=== PATIENT | male | born 1985 | race Caucasian/White ===

== ENCOUNTER 2017-03-06 04:59 | Emergency (ER) | payer OTHER ==
[~2017-03-06] VITALS: Ht 180.3 cm; Wt 90.3 kg
[~2017-03-06 04:59] MED LIST: OXYC1TAB3 PO
[2017-03-06 05:06] VITALS: BP 125/84; PULSE 132; TEMP 37; O2SAT 99; Ht 180.3 cm; Wt 90.3 kg
[2017-03-06] MEDS ORDERED: METH10TA2 PO (05:21)
[2017-03-06] MEDS ORDERED: LORAZEPAM 1 MG TAB SL STA (05:32)
[2017-03-06] MEDS ORDERED: ATV/1 PO (05:34)
[2017-03-06] MEDS ORDERED: ATIVAN 1MG HOMEPACK PO ONE (05:45)
--- NOTE | 2017-03-06 05:48 | EMERGENCY ROOM VISIT NOTE ---
History Report prepared by Chuyita: Ave Larry Under the Supervision of: Dr. Vinny Mendez M.D. First contact with patient: 05:12 Chief Complaint: ANXIETY Stated Complaint: EXTREME PANIC DISORDER/ATTACK History of Present Illness The patient is a 31 year old male who presents to the Emergency Room with complaints of an episode of severe anxiety starting 2 and half hours ago. The patient states that he has had anxiety attacks in the past since he was 17 and that his attacks have no pattern. He states in the past he has had them in clusters and is currently worried that another one will occur. The patient reports that this is the worst episode he has ever had in his life. He states he got up and let the dog out when it started. He reports that it feels like he is having a heart attack and being choked at the same time. He states that shortly after he starts to experience back pain when it feels like his adrenaline kicks in. The patient states that he was shaking and couldn't get off the bathroom floor. He states that he urinated in his pants from the episode and this is the first time that that has ever happened. The patient states that currently he feels twitchy and awful. He reports that this may have come about because he just lost his grandmother. The patient denies being suicidal and homicidal. Source of History: patient Onset: 2 and half hours ago Position: other (global) Symptom Intensity: severe Quality: other (global) Timing: other (episode) Associated Symptoms: + chest pain, + SOB, + back pain Note: The patient complains of feeling twitchy. The patient denies any suicidal or homicidal ideations. Review of Systems See HPI for pertinent positives & negatives. A total of 10 systems reviewed and were otherwise negative. Past Medical & Surgical Surgical Problems: (1) History of amputation of finger Family History Cancer Heart disease Social History Smoking Status: Current Every Day Smoker Alcohol Use: occasionally Marital Status: single Housing Status: lives with family Occupation Status: unemployed Current/Historical Medications Scheduled Methadone Hcl (Dolophine), 40 MG PO DAILY Scheduled PRN Lorazepam (Ativan), 1 MG PO Q6H PRN for Anxiety/Agitation Allergies Coded Allergies: No Known Allergies (Verified , 03/06/17) Physical Exam Vital Signs Date Time Temp Pulse Resp B/P (MAP) Pulse Ox O2 Delivery O2 Flow Rate FiO2 7/10/17 05:06 37.0 132 20 125/84 99 Room Air Physical Exam GENERAL: Patient is a healthy-appearing well-nourished HEAD: Normocephalic atraumatic EYES: Ocular movements intact pupils equal and react to light OROPHARYNX mucous membranes are moist no exudates present no erythema or edema present NECK: Supple no nuchal rigidity CHEST: Good equal expansion LUNGS: Clear and equal to auscultation CARDIAC: Normal S1 and S2 ABDOMEN: Soft nontender no guarding BACK: No CVA tenderness EXTREMITIES: No pain upon palpation normal muscle strength in all groups no clubbing cyanosis or edema NEURO: Patient is following commands and answering questions appropriately. Alert and oriented x3 Cranial Nerves 2-12 grossly intact. PSYCH: Patient denies suicidal and homicidal ideations. Medical Decision & Procedures Medications Administered Medications (Trade) Dose Ordered Sig/Daniella Route Start Time Stop Time Status Last Admin Dose Admin Lorazepam (Ativan Tab) 1 mg NOW STAT SL 03/06/17 05:32 03/06/17 05:33 DC 03/06/17 05:40 1 MG Lorazepam (Ativan 1MG Home Pack) 1 homepack UD ONCE PO 03/06/17 05:45 03/06/17 05:46 DC 03/06/17 05:40 1 HOMEPACK ED Course 0524: Past medical records reviewed. The patient was evaluated in room A4. A complete history and physical examination was performed. I discussed results and treatment plan with the patient. He verbalizes agreement and understanding. The patient is ready for discharge. 0532: Ordered Ativan Tab 1 mg SL. 0545: Ordered Ativan 1MG Home Pack 1 homepack PO. Medical Decision Medication Reconciliation: I attest that I have personally reviewed the patient' s current medication list Blood Pressure Screening: Patient was found to have normal blood pressure on screening and does not require follow up. Differential diagnosis: Etiologies such as mood disorder, infection, hypoglycemia, electrolyte abnormalities, cardiac sources, intracerebral event, toxicologic, neurologic, as well as others were entertained. This is a 31-year-old male that presents emergency department complaining of severe anxiety. The patient is requesting medicine to get him through his grandmother's on Monday. I feel that this is reasonable so he was given 1 mg of Ativan in the emergency department area I stressed the need for follow-up with case management to make sure that the patient is getting the appropriate therapy. Case management did meet independently with the patient. The patient denies being suicidal or homicidal and I feel he can be safely discharged home. Patient and family were in agreement with the treatment plan. Impression Primary Impression: Acute anxiety Scribe Attestation The scribe's documentation has been prepared under my direction and personally reviewed by me in its entirety. I confirm that the note above accurately reflects all work, treatment, procedures, and medical decision making performed by me. Departure Information Dispostion Home / Self-Care Prescriptions Lorazepam (ATIVAN) 1 Mg Tab 1 MG PO Q6H Y for Anxiety/Agitation, #6 TAB Prov: Vinny Mendze MD 03/06/17 Referrals No Doctor, Assigned (PCP) Forms HOME CARE DOCUMENTATION FORM, IMPORTANT VISIT INFORMATION Patient Instructions My [facility] Additional Instructions Need Follow up with O/P services You received narcotic or benzodiazepene medication while in the emergency room today. Do not drive, operate heavy machinery, mix medications, or drink alcohol under the influence of this medication. Radiographs and CTs will be reread by a radiologist in the morning. Culture results are usually available in approx 48 hours You have been examined and treated today on an emergency basis only. This is not a substitute for, or an effort to provide, complete comprehensive medical care. It is impossible to recognize and treat all injuries or illnesses in a single emergency department visit. It is therefore important that you follow up closely with your PCP. Call as soon as possible for an appointment. Thank you for your time and consideration. I look forward to speaking with you again soon. Please don't hesitate to call us if you have any questions.
== END 2017-03-06 05:50 | disposition home or self-care (01) ==
LOC: C.EDB 05:01 → C.EDA 05:50
DX: F41.9 Anxiety disorder, unspecified (principal); F17.210 Nicotine dependence, cigarettes, uncomplicated; Z80.9 Family history of malignant neoplasm, unspecified; Z82.49 Family history of ischemic heart disease and other diseases of the circulatory system; Z79.899 Other long term (current) drug therapy

== ENCOUNTER 2017-03-17 10:27 | Emergency (ER) | payer OTHER ==
[~2017-03-17] VITALS: Ht 180.3 cm; Wt 90.6 kg
[~2017-03-17 10:27] MED LIST changes: +ATV/1 PO; +METH10TA2 PO; -OXYC1TAB3 PO
[2017-03-17 10:32] VITALS: TEMP 36.7; Ht 180.3 cm; Wt 90.6 kg
[2017-03-17] MEDS ORDERED: LORAZEPAM 2 MG/ML 1 ML VIAL IV STA (10:53)
[2017-03-17 11:22] LABS: URINE APPEARANCE CLEAR (CLEAR); URINE BILIRUBIN NEG (NEG); URINE COLOR YELLOW; URINE NITRITE NEG (NEG); URINE PH 5.5 (4.5-7.5); URINE SPECIFIC GRAVITY 1.022 (1.000-1.030); UROBILINOGEN NEG (NEG)
[2017-03-17 11:24] LABS: MANUAL MICROSCOPIC REQUIRED? NO; REVIEW REQ? NO
--- NOTE | 2017-03-17 11:39 | DIAGNOSTIC IMAGING REPORT ---
CHEST ONE VIEW PORTABLE HISTORY: 31 years-old Male Mood Disorder COMPARISON: Chest radiograph 04/06/2009 TECHNIQUE: Portable upright AP view of the chest FINDINGS: Cardiomediastinal and hilar silhouettes are within normal limits. No pneumothorax, pleural effusion, focal airspace consolidation or overt pulmonary edema. There is minimal subsegmental atelectasis of the left lung base. Bones are grossly intact. There is a remote healed mid left clavicular fracture noted. IMPRESSION: Subsegmental left basilar atelectasis without acute cardiopulmonary process. The above report was generated using voice recognition software. It may contain grammatical, syntax or spelling errors. Electronically signed by: Aidan Cedeno M.D. 03/17/2017 11:38 AM Dictated Date/Time: 03/17/2017 11:37 AM
[2017-03-17 11:42] LABS: BASO % 0.2 %; BASO ABS # 0.02 K/uL (0-0.2); COMPLETE YES; HEMATOCRIT 47.6 % (42-52); IG% 0.4 %; LYMPH % 32.7 %; LYMPH ABS # 2.95 K/uL (1.2-3.4); MEAN CORPUSCULAR HEMOGLOBIN 29.8 pg (25-34); MEAN CORPUSCULAR HGB CONC 35.1 g/dl (32-36); MEAN PLATELET VOLUME 10.5 fL (7.4-10.4); MONO % 4.2 %; NEUT % 61.5 %; PLATELET COUNT 300 K/uL (130-400); WHITE BLOOD COUNT 9.02 K/uL (4.8-10.8)
[2017-03-17 11:49] LABS: BENZODIAZEPINE, URINE NEG (NEG); COCAINE,URINE NEG (NEG); PHENCYCLIDINE, URINE NEG (NEG)
[2017-03-17 12:04] LABS: BUN/CREATININE RATIO 12.6 (10-20); CALCIUM 9.9 mg/dl (8.5-10.1); CREATININE 1.1 mg/dl (0.60-1.40); POTASSIUM 3.7 mmol/L (3.5-5.1)
[2017-03-17 12:15] LABS: THYROID STIMULATING HORMONE 0.683 uIu/ml (0.300-4.500)
[2017-03-17] MEDS ORDERED: LORA-741 PO (13:41)
[2017-03-17 13:46] VITALS: BP 134/87; PULSE 98; O2SAT 96
--- NOTE | 2017-03-17 17:44 | EMERGENCY ROOM VISIT NOTE ---
History Report prepared by Chuyita: Shana Warner Under the Supervision of: Dr. Alan Smith D.O. First contact with patient: 10:35 Chief Complaint: ANXIETY Stated Complaint: PANIC DISORDER History of Present Illness The patient is a 31 year old male who presents to the Emergency Room with complaints of intermittent anxiety attacks for the past week. The patient was diagnosed with anxiety when he was 17 years old. He states that he will be fine for a while, but then every couple of years he has worsening panic attacks. The patient states that he has been having severe panic attacks more than once a day for the past week. He estimates that he has had 10 major episodes. His typical panic attack starts with numbness and tingling in the left arm and racing heart. He also reports fear and paranoia and back pain radiating up into his neck that he describes as "electric shock pain." The patient's anxiety has been getting worse, and he states that recently he has been incontinent of urine with his most severe panic attacks. He denies anything triggering his symptoms and has not been under more stress than usual lately. The patient's current anxiety attack began about 1 hour [employer].. He was seen in the ED last week for anxiety and was discharged with 1mg of Ativan PRN. He has been trying that, but states that it is not helping with his more severe anxiety attacks. He called a telenurse a couple of days ago, who suggested that he take 2mg, but the patient states that this did not help either. He has follow-up scheduled with [facility] in May 08, and he is concerned that he could not get an earlier appointment. He states that he is unable to leave the house or do anything because of his symptoms. The patient denies SI and HI. He does not have any personal history of bipolar disorder or schizophrenia. He denies any recent drug or alcohol use. Pt denies headache, fevers, nausea, vomiting, diarrhea, and pain with urination. Source of History: patient Onset: 1 week ago Position: other (global) Symptom Intensity: severe Quality: other (anxiety/panic) Timing: intermittent, worsening Associated Symptoms: + neck pain, + back pain, + urinary symptoms ( incontinence), + numbness (in left arm), No fevers, No headache, No nausea, No vomiting, No diarrhea Note: Pt denies HI and SI. Review of Systems See HPI for pertinent positives & negatives. A total of 10 systems reviewed and were otherwise negative. Past Medical & Surgical Surgical Problems: (1) History of amputation of finger Family History Cancer Heart disease Social History Smoking Status: Current Every Day Smoker Alcohol Use: occasionally Marital Status: single Housing Status: lives with family Occupation Status: unemployed Current/Historical Medications Scheduled Lorazepam (Ativan), 0.5 MG PO TID Methadone Hcl (Dolophine), 40 MG PO DAILY Allergies Coded Allergies: No Known Allergies (Verified , 03/06/17) Physical Exam Vital Signs Date Time Temp Pulse Resp B/P (MAP) Pulse Ox O2 Delivery O2 Flow Rate FiO2 03/17/17 13:46 98 18 134/87 96 03/17/17 12:30 100 18 104/71 96 Room Air 03/17/17 10:32 36.7 134 18 129/83 100 Room Air Physical Exam GENERAL: alert, sitting up in bed, anxious appearing, tremulous, disheveled, well nourished, no distress, non-toxic EYE EXAM: normal conjunctiva, PERRL and EOM's intact OROPHARYNX: no exudate, no erythema, lips, buccal mucosa, and tongue normal and mucous membranes are moist NECK: supple, no nuchal rigidity, no adenopathy, non-tender LUNGS: Clear to auscultation. Normal chest wall mechanics HEART: Tachycardic, no murmurs, S1 normal and S2 normal ABDOMEN: abdomen soft, non-tender, normo-active bowel sounds, no masses, no rebound or guarding. BACK: Back is symmetrical on inspection and there is no deformity, no midline tenderness, no CVA tenderness. SKIN: no rashes and no bruising UPPER EXTREMITIES: upper extremities are grossly normal. LOWER EXTREMITIES: No pitting edema. NEURO EXAM: Normal sensorium, cranial nerves II-XII intact, normal speech, no weakness of arms, no weakness of legs. No drift. Finger to nose intact. Gross sensation intact. PSYCH: Denies SI and HI, no auditory or visual hallucinations, admits to anxiety. Medical Decision & Procedures ER Provider Diagnostic Interpretation: Radiology results as stated below per my review and the radiologist's interpretation: CHEST ONE VIEW PORTABLE HISTORY: 31 years-old Male Mood Disorder COMPARISON: Chest radiograph 04/06/2009 TECHNIQUE: Portable upright AP view of the chest FINDINGS: Cardiomediastinal and hilar silhouettes are within normal limits. No pneumothorax, pleural effusion, focal airspace consolidation or overt pulmonary edema. There is minimal subsegmental atelectasis of the left lung base. Bones are grossly intact. There is a remote healed mid left clavicular fracture noted. IMPRESSION: Subsegmental left basilar atelectasis without acute cardiopulmonary process. The above report was generated using voice recognition software. It may contain grammatical, syntax or spelling errors. Electronically signed by: Aidan Cedeno M.D. 03/17/2017 11:38 AM Dictated Date/Time: 03/17/2017 11:37 AM Laboratory Results 03/17/17 11:27 Red Blood Count 5.60, Mean Corpuscular Volume 85.0, Mean Corpuscular Hemoglobin 29.8, Mean Corpuscular Hemoglobin Concent 35.1, Mean Platelet Volume 10.5, Neutrophils (%) (Auto) 61.5, Lymphocytes (%) (Auto) 32.7, Monocytes (%) (Auto) 4.2, Eosinophils (%) (Auto) 1.0, Basophils (%) (Auto) 0.2, Neutrophils # (Auto) 5.54, Lymphocytes # (Auto) 2.95, Monocytes # (Auto) 0.38, Eosinophils # (Auto) 0.09, Basophils # (Auto) 0.02 03/17/17 11:27 Test 03/17/17 10:44 03/17/17 11:27 Urine Color YELLOW Urine Appearance CLEAR (CLEAR) Urine pH 5.5 (4.5-7.5) Urine Specific Bruno 1.022 (1.000-1.030) Urine Protein NEG (NEG) Urine Glucose (UA) NEG (NEG) Urine Ketones NEG (NEG) Urine Occult Blood NEG (NEG) Urine Nitrite NEG (NEG) Urine Bilirubin NEG (NEG) Urine Urobilinogen NEG (NEG) Urine Leukocyte Esterase NEG (NEG) Urine Opiates Screen NEG (NEG) Urine Methadone, Qualitative POS (NEG) Urine Barbiturates NEG (NEG) Urine Phencyclidine (PCP) Level NEG (NEG) Ur Amphetamine/Methamphetamine NEG (NEG) MDMA (Ecstasy) Screen NEG (NEG) Urine Benzodiazepines Screen NEG (NEG) Urine Cocaine Metabolite NEG (NEG) Urine Marijuana (THC) NEG (NEG) White Blood Count 9.02 K/uL (4.8-10.8) Red Blood Count 5.60 M/uL (4.7-6.1) Hemoglobin 16.7 g/dL (14.0-18.0) Hematocrit 47.6 % (42-52) Mean Corpuscular Volume 85.0 fL (80-100) Mean Corpuscular Hemoglobin 29.8 pg (25-34) Mean Corpuscular Hemoglobin Concent 35.1 g/dl (32-36) Platelet Count 300 K/uL (130-400) Mean Platelet Volume 10.5 fL (7.4-10.4) Neutrophils (%) (Auto) 61.5 % Lymphocytes (%) (Auto) 32.7 % Monocytes (%) (Auto) 4.2 % Eosinophils (%) (Auto) 1.0 % Basophils (%) (Auto) 0.2 % Neutrophils # (Auto) 5.54 K/uL (1.4-6.5) Lymphocytes # (Auto) 2.95 K/uL (1.2-3.4) Monocytes # (Auto) 0.38 K/uL (0.11-0.59) Eosinophils # (Auto) 0.09 K/uL (0-0.5) Basophils # (Auto) 0.02 K/uL (0-0.2) RDW Standard Deviation 43.6 fL (36.4-46.3) RDW Coefficient of Variation 14.0 % (11.5-14.5) Immature Granulocyte % (Auto) 0.4 % Immature Granulocyte # (Auto) 0.04 K/uL (0.00-0.02) Anion Gap 6.0 mmol/L (3-11) Est Creatinine Clear Calc Drug Dose 111.0 ml/min Estimated GFR () 102.4 Estimated GFR (Non- 88.4 BUN/Creatinine Ratio 12.6 (10-20) Calcium Level 9.9 mg/dl (8.5-10.1) Total Bilirubin 0.3 mg/dl (0.2-1) Direct Bilirubin 0.1 mg/dl (0-0.2) Aspartate Amino Transf (AST/SGOT) 28 U/L (15-37) Alanine Aminotransferase (ALT/SGPT) 49 U/L (12-78) Alkaline Phosphatase 80 U/L (45-117) Total Protein 9.1 gm/dl (6.4-8.2) Albumin 4.8 gm/dl (3.4-5.0) Thyroid Stimulating Hormone (TSH) 0.683 uIu/ml (0.300-4.500) Ethyl Alcohol mg/dL < 3.0 mg/dl (0-3) Laboratory results per my review. Medications Administered Medications (Trade) Dose Ordered Sig/Daniella Route Start Time Stop Time Status Last Admin Dose Admin Lorazepam (Ativan Inj) 1 mg NOW STAT IV 03/17/17 10:53 03/17/17 10:54 DC 03/17/17 11:41 1 MG ECG Indication: back/shoulder pain Rate (beats per minute): 117 Rhythm: sinus tachycardia Findings: no ectopy, other (normal axis) Comparison ECG Date: no prior available ED Course ED COURSE: Vital signs were reviewed and showed tachycardic. The patients medical record was reviewed The above diagnostic studies were performed and reviewed. ED treatments and interventions as stated above. 1035: The patient was evaluated in room A6. A complete history and physical examination was performed. 1053: Lorazepam 1 mg IV 1227: The patient has a follow-up appointment scheduled with his PCP on Monday. 1257: I updated the patient and he is feeling better. 1313: Upon reevaluation, the patient is doing well. I discussed my findings with the patient and he understands and agrees with the treatment plan. Based on the patients age, coexisting illnesses, exam and lab findings the decision to treat as an outpatient was made. The patient remained stable while under my care. The patient appeared well at the time of discharge. Medical Decision Differential diagnosis: Etiologies such as mood disorder, infection, hypoglycemia, electrolyte abnormalities, cardiac sources, intracerebral event, toxicologic, neurologic, as well as others were entertained. Patient is a 31-year-old male who presents the ER for feeling increased heart rate along with tingling in his left arm. He notes he has been having panic attacks for over the past several years. This feels exactly his previous. There was associated with increased heart rate in tingling in his arm. He has an appointment with [facility] an May 08. He takes Ativan with improvement of his symptoms. He is completely neurologically intact on exam. CBC along with BMP, LFTs, bilirubin and TSH were unremarkable. UA was negative. He did receive his methadone today. He notes that this is not withdrawal. He denies any history of diabetes, hypertension, hyperlipidemia, CAD or sudden in family at a young age. Patient has no swelling, coughing up blood, previous blood clots, recent surgeries, recent trips or history cancer. He was nondiagnostic. Following Ativan he had complete resolution of symptoms. He was evaluated by psychiatry. They obtained a PCP appointment for Monday. [place] it was reasonable to discharged him to have follow-up with his PCP at this time completed neurologically intact. [place] Drug Monitoring Program Search Results: patient reviewed within database Drug Monitoring Findings: One previous prescription for Ativan. Medication Reconcilliation Current Medication List: was personally reviewed by me Blood Pressure Screening Patient's blood pressure: Normal blood pressure Blood pressure disposition: Did not require urgent referral Impression Primary Impression: Acute anxiety Scribe Attestation The scribe's documentation has been prepared under my direction and personally reviewed by me in its entirety. I confirm that the note above accurately reflects all work, treatment, procedures, and medical decision making performed by me. Departure Information Dispostion Home / Self-Care Prescriptions Lorazepam (ATIVAN) 0.5 Mg Tab 0.5 MG PO TID, #8 TAB Prov: Alan Smith, DO 03/17/17 Referrals No Doctor, Assigned (PCP) Forms HOME CARE DOCUMENTATION FORM, IMPORTANT VISIT INFORMATION Patient Instructions Anxiety Body Response, My [facility] [place] [facility] Additional Instructions Please follow up with your primary care doctor with in the next 24 hours. Any worsening of your symptoms, please return to the ED immediately. This includes passing out, weakness or numbness in arms or legs, chest pain, shortness of breath, or any other concerning signs or symptoms from your stand point. Please follow up with your primary care doctor on Monday.
[2017-03-20 03:18] LABS: METHADONE METABOLITE 8960 NG/ML (CUTOFF=100); METHADONE VERIFIC 9680 NG/ML (CUTOFF=100)
== END 2017-03-17 13:48 | disposition home or self-care (01) ==
LOC: C.EDB 10:29 → C.EDA 13:48
DX: F41.9 Anxiety disorder, unspecified (principal); F17.200 Nicotine dependence, unspecified, uncomplicated; Z89.029 Acquired absence of unspecified finger(s); R00.0 Tachycardia, unspecified

== ENCOUNTER 2017-05-11 12:22 | Emergency (ER) | payer OTHER ==
[~2017-05-11] VITALS: Ht 182.9 cm; Wt 90.9 kg
[~2017-05-11 12:22] MED LIST changes: -ATV/1 PO
[2017-05-11 12:27] VITALS: BP 138/83; PULSE 108; TEMP 37.5; O2SAT 99; Ht 182.9 cm; Wt 90.9 kg
[2017-05-11] MEDS ORDERED: OXYC1TAB3 PO (12:56)
--- NOTE | 2017-05-11 17:13 | EMERGENCY ROOM VISIT NOTE ---
History First contact with patient: 12:32 Chief Complaint: DENTAL PAIN Stated Complaint: POST FULL DENTAL EXTRACTION PAIN Nursing Triage Summary: pt had all teeth pulled yetserday at [facility] called today for pain told they do not help pain and to come to ed History of Present Illness The patient is a 31 year old male who presents to the Emergency Room with complaints of uncontrollable dental pain. The patient reports that he had all of his teeth ( 21 teeth in all) extracted yesterday by Dr. Alves. When the patient was unable to control his pain today, he called Dr. Alves's office, and was told to rinse his mouth with salt water and take Motrin as needed for pain. He was referred to the emergency department for further pain management. The patient denies any active bleeding, fevers or chills or difficulty swallowing. Review of Systems 10 system review was performed and was negative except for pertinent positives and negatives as indicated in history of present illness Past Medical/Surgical History Surgical Problems: (1) History of amputation of finger Family History Cancer Heart disease Social History Smoking Status: Current Every Day Smoker Alcohol Use: occasionally Marital Status: single Housing Status: lives with family Occupation Status: unemployed Current/Historical Medications Scheduled Methadone Hcl (Dolophine), 40 MG PO DAILY Scheduled PRN Oxycodone Ir (Roxicodone Ir), 1-2 TAB PO Q4H PRN for Pain Physical Exam Vital Signs Date Time Temp Pulse Resp B/P (MAP) Pulse Ox O2 Delivery O2 Flow Rate FiO2 05/11/17 12:27 37.5 108 18 138/83 99 Room Air Pain Rating (0-10): 7.0 Physical Exam CONSTITUTIONAL: Healthy and well nourished. Alert and oriented X 3 with positive affect. HEENT: Normocephalic, atraumatic. Pupils equal, round and reactive. No facial edema noted. OROPHARYNX: The patient has evidence for a complete dental extraction. Sutures are intact without any active bleeding or significant edema, overriding erythema , fluctuance or drainage. No evidence for Atul's angina or retropharyngeal abscess. LYMPHATICS: No submental, submandibular or cervical chain adenopathy. NECK: Full active range of motion without discomfort. RESPIRATORY: Clear to auscultation bilaterally with no wheezing, crackles, rhonchi or stridor. CARDIOVASCULAR: Regular rate and rhythm with no murmurs, rubs or gallops. INTEGUMENTARY: No rash or other significant dermatologic conditions noted. NEUROLOGIC: Facial sensations are intact. Medical Decision & Procedures ED Course Patient history and physical exam were performed. Nurse's notes were reviewed. Vital signs were reviewed and were normal. Upon further questioning, the patient reports that he is currently on methadone. The patient reports that he told his dentist of his methadone use, likely the reason why he was sent to the emergency department. I also explained to the emergency department that methadone usually blocks the receptors of opioids, making opioids and effective for pain control. I also suggested that stopping methadone could also cause withdrawal symptoms. In order to discuss further options for the patient, I did call his pain clinic at [facility] ([phone]), and spoke with Candace, one of the RNs who also suggested that he not stop the methadone. She suggested Toradol for his pain. I did explain to the patient is currently taking ibuprofen 800 mg without relief. She left prescription opioids to my discretion, again reminding me that opioids are not effective with use of methadone. I did ask that they put in the patient's medical records of his visit to the emergency department, and also explained that I would provide a prescription for OxyIR 5 mg, dispensed #15 with no refills. The patient will need to follow-up with his pain clinic and dentist for further management. At this point, the patient was advised that he does not have any clear infection, therefore decision for antibiotic treatment will be left with his oral surgeon. The patient was happy with plan of care, voiced understanding of all discharge instructions, refused any analgesics or Toradol while in the emergency department, and rated his pain a 6 out of 10 at the time of discharge. Medical Decision [place] Drug Monitoring Program Search Results: patient reviewed within database, see additional documentation Medication Reconcilliation Current Medication List: was personally reviewed by me Blood Pressure Screening Patient's blood pressure: Normal blood pressure Impression Primary Impression: Post extraction dental pain Departure Information Dispostion Home / Self-Care Condition GOOD Prescriptions Oxycodone Ir (Roxicodone Ir) 5 Mg Tab 1-2 TAB PO Q4H Y for Pain, #15 TAB For Initial Treatment Prov: Alexander Wing PA 05/11/17 Forms HOME CARE DOCUMENTATION FORM, IMPORTANT VISIT INFORMATION Patient Instructions My [facility] Additional Instructions Ibuprofen 800 mg and/or Tylenol 1000 mg every 8 hours. You may also alternate these medications for more effective pain relief: Ibuprofen --4 HRS--> Tylenol --4 HRS--> ibuprofen --4 HRS--> Tylenol .... Try OxyIR as prescribed for additional pain relief. You have to remember that methadone blocks opioids, and that this may not provide adequate relief. Take your prescription bottle to your pain clinic to confirm your treatment from the emergency department. Follow-up with your dentist as needed for further management.
== END 2017-05-11 12:55 | disposition home or self-care (01) ==
LOC: C.EDB 12:24 → C.EDD 12:55
DX: K08.89 Other specified disorders of teeth and supporting structures (principal); F17.200 Nicotine dependence, unspecified, uncomplicated

== ENCOUNTER 2017-07-17 14:51 | Emergency (ER) | payer OTHER ==
[~2017-07-17] VITALS: Ht 182.9 cm; Wt 89.1 kg
[~2017-07-17 14:51] MED LIST changes: +OXYC1TAB3 PO
[2017-07-17 14:57] VITALS: TEMP 37; Ht 182.9 cm; Wt 89.1 kg
--- NOTE | 2017-07-17 15:20 | EMERGENCY ROOM VISIT NOTE ---
History Report prepared by Chuyita: Lorna David Under the Supervision of: Dr. Cristi De Anda D.O. First contact with patient: 15:05 Chief Complaint: MENTAL HEALTH EVALUATION Stated Complaint: EXTREME PANIC DISORDER History of Present Illness The patient is a 32 year old male who presents to the Emergency Room with complaints of worsening anxiety. He is accompanied by his father. He admits to a history of extreme panic disorder and states his anxiety has worsened recently. In the past week, the patient followed up with his Psychiatrist. He reports they haven't been able to find a trigger for his panic attacks and they can happen any time and anywhere. He has experienced the attacks intermittently since he was 17 years old. They can happen up to 6 or 7 times a week. Today, the attack was "a lot worse than the other ones", so the patient came to the ED. He states he experienced extreme chest pain and difficulty breathing today. The patient takes daily Thorazine, which he has been on for the past few weeks. He also takes daily Methadone, for a history of opiate addiction. He denies any history of HIV or Hepatitis. He has never experienced a heart valve infection. He is a current smoker. He denies any HI or SI. He denies any visual or auditory hallucinations. He does admit to some recent coughing. He states he has never been treated inpatient for psychiatric reasons before. Source of History: patient Onset: [address] [address] [employer] Position: other (global) Quality: other (anxiety) Timing: worsening Associated Symptoms: + cough Review of Systems See HPI for pertinent positives & negatives. A total of 10 systems reviewed and were otherwise negative. Past Medical & Surgical Medical Problems: (1) Anxiety Disorder, Unspecified (2) Nicotine Dependence, Cigarettes, Uncomplicated (3) Opioid abuse Surgical Problems: (1) History of amputation of finger Family History Cancer Heart disease Social History Smoking Status: Current Every Day Smoker Alcohol Use: occasionally Marital Status: single Housing Status: lives with family Occupation Status: unemployed Current/Historical Medications Scheduled Chlorpromazine Hcl (Thorazine), 10 MG PO QAM Chlorpromazine Hcl (Thorazine), 50 MG PO HS Methadone Hcl (Methadone Hcl Intensol), 30 MG PO DAILY Allergies Coded Allergies: No Known Allergies (Verified , 05/11/17) Physical Exam Vital Signs Date Time Temp Pulse Resp B/P (MAP) Pulse Ox O2 Delivery O2 Flow Rate FiO2 11/20/17 19:39 125 16 125/99 99 07/17/17 16:51 97 20 129/70 100 Room Air 07/17/17 14:57 37.0 121 20 121/71 Room Air Physical Exam GENERAL: Patient is awake, alert, in no acute distress, patient is resting comfortably and showing no signs of anxiety EYES: The conjunctivae are clear. The pupils are round and reactive. EARS, NOSE, MOUTH AND THROAT: The nose is without any evidence of any deformity. Mucous membranes are moist tongue is midline NECK: The neck is nontender and supple. RESPIRATORY: Normal respiratory effort is noted there is no evidence of wheezing rhonchi or rales CARDIOVASCULAR: Heart sounds are tachycardic but regular. No definite murmur noted to auscultation. GASTROINTESTINAL: The abdomen is soft. Bowel sounds are present in all quadrants. Abdomen is nontender MUSCULOSKELETAL/EXTREMITIES: There is no evidence of gross deformity full range of motion is noted in the hips and shoulders SKIN: There is no obvious evidence of any rash. There are no petechiae, pallor or cyanosis noted. NEUROLOGIC: Patient is awake and alert. He makes good eye contact. He is currently denying any SI or HI. Medical Decision & Procedures ER Provider Diagnostic Interpretation: Radiology results as stated below per my review and radiologist interpretation: (CHEST FOR PE) ANGIO WITH CT DOSE: 442.72 mGy.cm HISTORY: Chest pain dyspnea TECHNIQUE: Multiaxial CT images of the chest were performed following the intravenous administration of contrast to evaluate the pulmonary arteries. Maximal intensity projection images were also obtained. A dose lowering technique was utilized adhering to the principles of ALARA. COMPARISON STUDY: None. FINDINGS: There is a normal caliber thoracic aorta with no evidence for dissection. There is no evidence for pulmonary embolus. No pleural effusions. No pneumothorax. The liver and spleen are unremarkable. No mediastinal or hilar lymphadenopathy. The central airways are patent. The lungs are clear. Mild basilar dependent interstitial change IMPRESSION: No evidence for pulmonary embolus. The lungs are clear. Mild dependent bibasilar interstitial change The above report was generated using voice recognition software. It may contain grammatical, syntax or spelling errors. Electronically signed by: Bruce Mack M.D. 07/17/2017 4:58 PM CHEST ONE VIEW PORTABLE CLINICAL HISTORY: Atypical chest pain COMPARISON STUDY: 03/17/2017 FINDINGS: The cardiac and mediastinal contours are normal. There is no evidence of focal pulmonary consolidation. There is no evidence of failure. No pleural effusions are visualized. There are stable areas of subsegmental atelectasis/scarring at the left lung base. IMPRESSION: No active disease in the chest. Electronically signed by: Salty Quezada M.D. 07/17/2017 3:50 PM Laboratory Results 07/17/17 15:33 Red Blood Count 5.25, Mean Corpuscular Volume 84.2, Mean Corpuscular Hemoglobin 29.1, Mean Corpuscular Hemoglobin Concent 34.6, Mean Platelet Volume 10.4, Neutrophils (%) (Auto) 65.2, Lymphocytes (%) (Auto) 26.1, Monocytes (%) (Auto) 6.2, Eosinophils (%) (Auto) 2.0, Basophils (%) (Auto) 0.3, Neutrophils # (Auto) 7.29, Lymphocytes # (Auto) 2.92, Monocytes # (Auto) 0.69, Eosinophils # (Auto) 0.22, Basophils # (Auto) 0.03 07/17/17 15:33 Test 07/17/17 15:10 07/17/17 15:33 07/17/17 15:46 Urine Color YELLOW Urine Appearance CLEAR (CLEAR) Urine pH 5.5 (4.5-7.5) Urine Specific [place] 1.025 (1.000-1.030) Urine Protein NEG (NEG) Urine Glucose (UA) NEG (NEG) Urine Ketones TRACE (NEG) Urine Occult Blood NEG (NEG) Urine Nitrite NEG (NEG) Urine Bilirubin NEG (NEG) Urine Urobilinogen NEG (NEG) Urine Leukocyte Esterase NEG (NEG) Urine Opiates Screen NEG (NEG) Urine Methadone, Qualitative POS (NEG) Urine Barbiturates NEG (NEG) Urine Phencyclidine (PCP) Level NEG (NEG) Ur Amphetamine/Methamphetamine NEG (NEG) MDMA (Ecstasy) Screen NEG (NEG) Urine Benzodiazepines Screen POS (NEG) Urine Cocaine Metabolite NEG (NEG) Urine Marijuana (THC) NEG (NEG) White Blood Count 11.17 K/uL (4.8-10.8) Red Blood Count 5.25 M/uL (4.7-6.1) Hemoglobin 15.3 g/dL (14.0-18.0) Hematocrit 44.2 % (42-52) Mean Corpuscular Volume 84.2 fL (80-100) Mean Corpuscular Hemoglobin 29.1 pg (25-34) Mean Corpuscular Hemoglobin Concent 34.6 g/dl (32-36) Platelet Count 220 K/uL (130-400) Mean Platelet Volume 10.4 fL (7.4-10.4) Neutrophils (%) (Auto) 65.2 % Lymphocytes (%) (Auto) 26.1 % Monocytes (%) (Auto) 6.2 % Eosinophils (%) (Auto) 2.0 % Basophils (%) (Auto) 0.3 % Neutrophils # (Auto) 7.29 K/uL (1.4-6.5) Lymphocytes # (Auto) 2.92 K/uL (1.2-3.4) Monocytes # (Auto) 0.69 K/uL (0.11-0.59) Eosinophils # (Auto) 0.22 K/uL (0-0.5) Basophils # (Auto) 0.03 K/uL (0-0.2) RDW Standard Deviation 43.1 fL (36.4-46.3) RDW Coefficient of Variation 14.0 % (11.5-14.5) Immature Granulocyte % (Auto) 0.2 % Immature Granulocyte # (Auto) 0.02 K/uL (0.00-0.02) Anion Gap 10.0 mmol/L (3-11) Est Creatinine Clear Calc Drug Dose 121.4 ml/min Estimated GFR () 121.4 Estimated GFR (Non- 104.8 BUN/Creatinine Ratio 11.9 (10-20) Calcium Level 9.4 mg/dl (8.5-10.1) Total Bilirubin 0.2 mg/dl (0.2-1) Direct Bilirubin < 0.1 mg/dl (0-0.2) Aspartate Amino Transf (AST/SGOT) 32 U/L (15-37) Alanine Aminotransferase (ALT/SGPT) 52 U/L (12-78) Alkaline Phosphatase 81 U/L (45-117) Troponin I < 0.015 ng/ml (0-0.045) Total Protein 8.0 gm/dl (6.4-8.2) Albumin 4.1 gm/dl (3.4-5.0) Thyroid Stimulating Hormone (TSH) 0.862 uIu/ml (0.300-4.500) Ethyl Alcohol mg/dL < 3.0 mg/dl (0-3) Bedside D-Dimer > 450 ng/mlFEU (0-450) Laboratory results per my review. Medications Administered Medications (Trade) Dose Ordered Sig/Daniella Route Start Time Stop Time Status Last Admin Dose Admin Lorazepam (Ativan Tab) 1 mg NOW STAT PO 07/17/17 15:21 07/17/17 15:22 DC 07/17/17 15:50 1 MG Sodium Chloride 1,000 ml @ 999 mls/hr Q1H1M STAT IV 07/17/17 16:52 07/17/17 17:52 DC 07/17/17 16:57 999 MLS/HR Lorazepam (Ativan Tab) 1 mg NOW STAT SL 07/17/17 19:03 07/17/17 19:04 DC 07/17/17 19:12 1 MG Lorazepam (Ativan 1MG Home Pack) 1 homepack UD ONCE PO 07/17/17 19:15 07/17/17 19:16 DC 07/17/17 19:15 1 HOMEPACK ED Course 1515: The patient was evaluated in room A7. A complete history and physical examination were performed. 1521: Ativan 1 mg PO. 1652: NSS 1000 ml @ 999 mls/hr IV. 1903: Ativan 1 mg SL. 1915: Ativan 1 mg 1 homepack PO. 9: Psychiatric Case Management informed me they have spoken to the patient and believe he can follow up as an outpatient. 0: I reevaluated the patient. He is feeling well. I discussed his discharge instructions and he verbalized complete understanding and agreement. Medical Decision Prior records/ancillary studies reviewed. Triage Nursing notes reviewed. The patient's history was concerning for possible psychiatric disturbance. Differential diagnosis: Etiologies such as mood disorder, infection, hypoglycemia, electrolyte abnormalities, cardiac sources, intracerebral event, toxicologic, neurologic, as well as others were entertained. The patient is a 32-year-old male who presented to the emergency department for an evaluation of medical as well as mental health problems. The patient has a history of anxiety and states that his anxiety problems have been getting worse recently. He is had this for a long time the episodes have been occurring frequently. The patient also complained of chest discomfort and difficulty breathing. He was very anxious and tachycardic initially. He was not hypoxic but his d-dimer is elevated. The patient's EKG did not show any acute changes from previous. His cardiac biomarker was negative. CT angiography of the chest did not reveal any acute intrathoracic abnormality. The patient was treated with Ativan in the emergency department. He was also given IV fluids. On subsequent reevaluation he was feeling much better. I discussed the patient's laboratory radiographic studies with him as well as his father. The patient was cleared from a medical standpoint and was evaluated by the emergency department mental health delegate. Medication Reconcilliation Current Medication List: was personally reviewed by me Blood Pressure Screening Patient's blood pressure: Normal blood pressure Blood pressure disposition: Did not require urgent referral Impression Primary Impression: Anxiety Additional Impressions: Tachycardia Chest pain Scribe Attestation The scribe's documentation has been prepared under my direction and personally reviewed by me in its entirety. I confirm that the note above accurately reflects all work, treatment, procedures, and medical decision making performed by me. Departure Information Dispostion Home / Self-Care Referrals Marimar Nichols DO (PCP) Patient Instructions Chest Pain - [facility], [facility] Additional Instructions Follow-up with your therapist as well as her primary care physician as soon as possible. Rest and avoid any strenuous activity. Call crisis or return to the emergency department immediately if symptoms change worsen or the need arises. Problem Qualifiers
[2017-07-17] MEDS ORDERED: LORAZEPAM 1 MG TAB PO STA (15:21)
[2017-07-17 15:40] LABS: URINE APPEARANCE CLEAR (CLEAR); URINE BILIRUBIN NEG (NEG); URINE COLOR YELLOW; URINE NITRITE NEG (NEG); URINE PH 5.5 (4.5-7.5); URINE SPECIFIC GRAVITY 1.025 (1.000-1.030); UROBILINOGEN NEG (NEG)
[2017-07-17 15:41] LABS: MANUAL MICROSCOPIC REQUIRED? NO; REVIEW REQ? NO
--- NOTE | 2017-07-17 15:51 | DIAGNOSTIC IMAGING REPORT ---
CHEST ONE VIEW PORTABLE CLINICAL HISTORY: Atypical chest pain COMPARISON STUDY: 03/17/2017 FINDINGS: The cardiac and mediastinal contours are normal. There is no evidence of focal pulmonary consolidation. There is no evidence of failure. No pleural effusions are visualized.[ There are stable areas of subsegmental atelectasis/scarring at the left lung base. IMPRESSION: No active disease in the chest. Electronically signed by: Salty Quezada M.D. 07/17/2017 3:50 PM Dictated Date/Time: 07/17/2017 3:50 PM
[2017-07-17 16:01] LABS: BASO % 0.3 %; BASO ABS # 0.03 K/uL (0-0.2); COMPLETE YES; HEMATOCRIT 44.2 % (42-52); IG% 0.2 %; LYMPH % 26.1 %; LYMPH ABS # 2.92 K/uL (1.2-3.4); MEAN CELL VOLUME 84.2 fL (80-100); MEAN CORPUSCULAR HEMOGLOBIN 29.1 pg (25-34); MEAN CORPUSCULAR HGB CONC 34.6 g/dl (32-36); MEAN PLATELET VOLUME 10.4 fL (7.4-10.4); MONO % 6.2 %; NEUT % 65.2 %; PLATELET COUNT 220 K/uL (130-400); RED BLOOD COUNT 5.25 M/uL (4.7-6.1); WHITE BLOOD COUNT 11.17 K/uL (4.8-10.8)
[2017-07-17] MEDS ORDERED: CHLO1TAB38 PO (16:08)
[2017-07-17] MEDS ORDERED: METH10CO PO (16:08)
[2017-07-17] MEDS ORDERED: CHLO1TAB15 PO (16:08)
[2017-07-17] MEDS ORDERED: OPTIRAY 320 IV PRN (16:30)
[2017-07-17 16:33] LABS: ALT/SGPT 52 U/L (12-78); BLOOD UREA NITROGEN 11 mg/dl (7-18); BUN/CREATININE RATIO 11.9 (10-20); CALCIUM 9.4 mg/dl (8.5-10.1); CARBON DIOXIDE 25 mmol/L (21-32); CHLORIDE 102 mmol/L (98-107); CREATININE 0.95 mg/dl (0.60-1.40); GLUCOSE 93 mg/dl (70-99); POTASSIUM 3.9 mmol/L (3.5-5.1); SODIUM 137 mmol/L (136-145)
[2017-07-17 16:33] LABS: BENZODIAZEPINE, URINE POS (NEG); COCAINE,URINE NEG (NEG); PHENCYCLIDINE, URINE NEG (NEG)
[2017-07-17 16:44] LABS: ALKALINE PHOSPHATASE 81 U/L (45-117); AST/SGOT 32 U/L (15-37); THYROID STIMULATING HORMONE 0.862 uIu/ml (0.300-4.500)
[2017-07-17] MEDS ORDERED: SODIUM CHLORIDE 0.9% 1000ML 1,000 ML IV STA (16:52)
--- NOTE | 2017-07-17 16:59 | DIAGNOSTIC IMAGING REPORT ---
(CHEST FOR PE) ANGIO WITH CT DOSE: 442.72 mGy.cm HISTORY: Chest pain dyspnea TECHNIQUE: Multiaxial CT images of the chest were performed following the intravenous administration of contrast to evaluate the pulmonary arteries. Maximal intensity projection images were also obtained. A dose lowering technique was utilized adhering to the principles of ALARA. COMPARISON STUDY: None. FINDINGS: There is a normal caliber thoracic aorta with no evidence for dissection. There is no evidence for pulmonary embolus. No pleural effusions. No pneumothorax. The liver and spleen are unremarkable. No mediastinal or hilar lymphadenopathy. The central airways are patent. The lungs are clear. Mild basilar dependent interstitial change IMPRESSION: No evidence for pulmonary embolus. The lungs are clear. Mild dependent bibasilar interstitial change The above report was generated using voice recognition software. It may contain grammatical, syntax or spelling errors. Electronically signed by: Bruce Mack M.D. 07/17/2017 4:58 PM Dictated Date/Time: 07/17/2017 4:55 PM
[2017-07-17] MEDS ORDERED: LORAZEPAM 1 MG TAB SL STA (19:03)
[2017-07-17] MEDS ORDERED: ATIVAN 1MG HOMEPACK PO ONE (19:15)
[2017-07-17 19:39] VITALS: BP 125/99; PULSE 125; O2SAT 99
== END 2017-07-17 19:40 | disposition home or self-care (01) ==
LOC: C.EDB 14:52 → C.EDA 19:40
DX: F41.9 Anxiety disorder, unspecified (principal); R00.0 Tachycardia, unspecified; R07.9 Chest pain, unspecified; F17.210 Nicotine dependence, cigarettes, uncomplicated; F11.11 Opioid abuse, in remission; Z89.029 Acquired absence of unspecified finger(s); Z80.9 Family history of malignant neoplasm, unspecified; Z79.899 Other long term (current) drug therapy